=== PATIENT | male | born 1980 | race Caucasian/White ===

== ENCOUNTER 2016-05-04 19:14 | Emergency (ER) | payer OTHER ==
[~2016-05-04] VITALS: Ht 175.3 cm; Wt 69.0 kg
[~2016-05-04 19:14] MED LIST: NAPR550 PO; Z.0.NO CURRENT MEDS
[2016-05-04 19:27] VITALS: BP 116/80; PULSE 85; RESP 16; TEMP 98.8; O2SAT 98
[2016-05-04] MEDS ORDERED: AMLO5TAB2 PO (19:27)
[2016-05-04] MEDS ORDERED: BACT800T5 PO (19:27)
[2016-05-04] MEDS ORDERED: diphenhydrAMINE HCL 50 MG/ML VIAL IVP ONE (19:45)
[2016-05-04] MEDS ORDERED: methylPREDNISolone SOD SUCC 125 MG/2 ML VIAL IVP ONE (19:45)
[2016-05-04] MEDS ORDERED: FAMOTIDINE 20 MG/2 ML VIAL IV PUSH ONE (19:45)
[2016-05-04] MEDS ORDERED: SODIUM CHLORIDE 0.9% FLUSH 5 ML FLUSH IVF PRN (19:45)
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
[2016-05-04 20:15] VITALS: BP 115/73; PULSE 79; RESP 20; O2SAT 99
[2016-05-04 20:30] VITALS: BP 110/76; PULSE 72; RESP 20; O2SAT 98
[2016-05-04 21:38] LABS: BLOOD, URINE NEG (NEG); GLUCOSE,URINE NEG (NEG); KETONE, URINE NEG (NEG); NITRITE,URINE NEG (NEG)
[2016-05-04 21:39] LABS: AUTOMATED NEUTROPHIL # 2.7 TH/MM3 (1.8-7.7); BASOPHIL % 0.4 % (0.0-2.0); EOSINOPHIL # 0.1 TH/MM3 (0-0.4); EOSINOPHIL % 2.9 % (0.0-4.0); HEMATOCRIT 40.9 % (39.0-51.0); HEMO FLAGS DIFF FINAL; LYMPH % 15.5 % (9.0-44.0); LYMPHOCYTE # 0.6 TH/MM3 (1.0-4.8); MEAN CORPUSCULAR HEMOGLOBIN 30.2 PG (27.0-34.0); MEAN CORPUSCULAR HGB CONC 34.3 % (32.0-36.0); MONO % 9.6 % (0.0-8.0); NEUT % 71.6 % (16.0-70.0); PLATELET COUNT 156 TH/MM3 (150-450); RED BLOOD COUNT 4.65 MIL/MM3 (4.50-5.90); RED CELL DISTRIBUTION WIDTH 11.7 % (11.6-17.2); WHITE BLOOD COUNT 3.8 TH/MM3 (4.0-11.0)
[2016-05-04 21:47] LABS: POTASSIUM 3.7 MEQ/L (3.5-5.1)
[2016-05-04 21:48] LABS: COMMENT (UR) CULT NOT INDICATED; CULTURE IF INDICATED CULT NOT INDICATED
[2016-05-04 21:50] LABS: BICARBONATE 24.1 MEQ/L (21.0-32.0)
[2016-05-04 22:00] VITALS: BP 120/76; PULSE 72; RESP 20; O2SAT 98
[2016-05-04] MEDS ORDERED: SODIUM CHLOR 0.9% 1000 ML INJ 1,000 ML IV ONE (22:30)
[2016-05-04] MEDS ORDERED: MEDR4PAK PO (22:34)
[2016-05-04 23:15] VITALS: BP 115/76; PULSE 72; RESP 20; O2SAT 98
[2016-05-04 23:31] VITALS: BP 115/76
== END 2016-05-04 23:15 | disposition home or self-care (01) ==
LOC: PHED 19:14
DX: T88.7XXA Unspecified adverse effect of drug or medicament, initial encounter (principal); D72.819 Decreased white blood cell count, unspecified; I10 Essential (primary) hypertension; F10.20 Alcohol dependence, uncomplicated
CPT/HCPCS: 80048; 81001; 85025; 87040; 96374; 96375; 99283; J1200; J2930; J7030

== ENCOUNTER 2016-10-31 07:39 | Emergency (ER) | payer OTHER ==
[~2016-10-31] VITALS: Ht 177.8 cm; Wt 71.5 kg
[~2016-10-31 07:39] MED LIST changes: +AMLO5TAB2 PO; +BACT800T5 PO; +MEDR4PAK PO; -NAPR550 PO; -Z.0.NO CURRENT MEDS
[2016-10-31 07:54] VITALS: BP 142/102; PULSE 72; RESP 16; TEMP 97.9; O2SAT 100
[2016-10-31] MEDS ORDERED: SODIUM CHLOR 0.9% 1000 ML INJ 1,000 ML IV ONE (08:00)
[2016-10-31] MEDS ORDERED: THIAMINE INJ 100 MG in SODIUM CHLORIDE 0.9% INJ 100 ML IV ONE (08:00)
--- NOTE | 2016-10-31 08:02 | PD ---
HPI Chief Complaint: General Weakness Time Seen by Provider: 07:54 Travel History International Travel<30 days: No Contact w/Intl Traveler<30days: No Traveled to known affect area: No History of Present Illness HPI 36yo M presents to the ED with c/o generalized fatigue today with some lightheadedness and nausea. States he usually wakes up with energy but today feels tired and has not been eating well for the last few days. Pt drinks 6 beers a day, last time was yesterday. Denies any fever, cough, chest pain, sob , n/v, abdominal pain, focal weakness or numbness or trauma. Pt denies any thoughts of hurting himself or others. PFSH Past Medical History Asthma: Yes (IN CHILDHOOD) Diminished Hearing: No Hypertension: Yes Tetanus Vaccination: Unknown Influenza Vaccination: No Social History Alcohol Use: Yes (daily 6 beers daily) Tobacco Use: No (STS HE QUIT 06/01; USED TO SMOKE 1 PPD) Substance Use: No (DENIES ) Allergies-Medications (Allergen,Severity, Reaction): Coded Allergies: Cat Dander (Verified Allergy, Severe, ITCHY, WATERY EYES, 10/31/16) Codeine (Verified Allergy, Severe, 10/31/16) Sulfa (Verified Allergy, Intermediate, Rash, 10/31/16) Reported Meds & Prescriptions Reported Meds & Active Scripts Active Reported Amlodipine (Amlodipine Besylate) 5 Mg Tab 5 Mg PO DAILY Review of Systems Except as stated in HPI: all other systems reviewed are Neg Physical Exam Narrative GENERAL: 36yo M not in distress. SKIN: Focused skin assessment warm/dry. HEAD: Atraumatic. Normocephalic. EYES: Pupils equal and round at 3mm bilaterally. EOMI. No scleral icterus. No injection or drainage. ENT: No nasal bleeding or discharge. Mucous membranes pink and moist. NECK: Trachea midline. No JVD. CARDIOVASCULAR: Regular rate and rhythm. No murmur appreciated. RESPIRATORY: No accessory muscle use. Clear to auscultation. Breath sounds equal bilaterally. GASTROINTESTINAL: Abdomen soft, non-tender, nondistended. MUSCULOSKELETAL: No obvious deformities. No clubbing. No cyanosis. No edema. NEUROLOGICAL: Awake and alert. No obvious cranial nerve deficits. Motor grossly within normal limits. Normal speech. PSYCHIATRIC: Appropriate mood and affect; insight and judgment normal. Data Data Last Documented VS Vital Signs Date Time Temp Pulse Resp B/P Pulse Ox O2 Delivery O2 Flow Rate FiO2 10/31/16 08:53 82 16 146/95 98 Room Air 10/31/16 07:54 97.9 Orders Thiamine Inj (Thiamine Inj) (10/31/16 08:00) Sodium Chlor 0.9% 1000 Ml Inj (Ns 1000 M (10/31/16 08:00) Complete Blood Count With Diff (10/31/16 07:59) Basic Metabolic Panel (Bmp) (10/31/16 07:59) Magnesium (Mg) (10/31/16 07:59) Electrocardiogram (10/31/16 ) Thyroid Stimulating Hormone (10/31/16 08:02) Thyroxine (T4) (10/31/16 08:02) Ondansetron Inj (Zofran Inj) (10/31/16 08:45) Labs Laboratory Tests Test 10/31/16 08:14 White Blood Count 3.7 TH/MM3 Red Blood Count 4.89 MIL/MM3 Hemoglobin 14.4 GM/DL Hematocrit 42.5 % Mean Corpuscular Volume 86.9 FL Mean Corpuscular Hemoglobin 29.6 PG Mean Corpuscular Hemoglobin 34.0 % Concent Red Cell Distribution Width 11.6 % Platelet Count 194 TH/MM3 Mean Platelet Volume 8.0 FL Neutrophils (%) (Auto) 47.2 % Lymphocytes (%) (Auto) 37.8 % Monocytes (%) (Auto) 10.3 % Eosinophils (%) (Auto) 4.1 % Basophils (%) (Auto) 0.6 % Neutrophils # (Auto) 1.7 TH/MM3 Lymphocytes # (Auto) 1.4 TH/MM3 Monocytes # (Auto) 0.4 TH/MM3 Eosinophils # (Auto) 0.2 TH/MM3 Basophils # (Auto) 0.0 TH/MM3 CBC Comment DIFF FINAL Differential Comment Sodium Level 139 MEQ/L Potassium Level 4.1 MEQ/L Chloride Level 103 MEQ/L Carbon Dioxide Level 24.2 MEQ/L Anion Gap 12 MEQ/L Blood Urea Nitrogen 11 MG/DL Creatinine 0.89 MG/DL Estimat Glomerular Filtration 97 ML/MIN Rate Random Glucose 126 MG/DL Calcium Level 9.1 MG/DL Magnesium Level 2.0 MG/DL Thyroid Stimulating Hormone 1.260 uIU/ML 3rd Gen [facility] Medical Decision Making Medical Screen Exam Complete: Yes Emergency Medical Condition: Yes Interpretation(s) EKG: NSR 81bpm. Normal axis. 1mm ST elevation V2, V3. No reciprocal changes. Early repolarization. Differential Diagnosis Electrolyte abnormality vs. malnutrition vs. dehydration vs. depression Narrative Course 36yo M well appearing male here with c/o generalized fatigue today. Pt states he has been under a lot of stress. Also feels a little nauseous. Pt drinks daily around 6-8 beers a day. Labs reviewed, WBC mildly decreased at 3.7. K normal at 4.1. Magnesium normal at 2.0. TSH normal. Pt given thiamine and zofran. Pt reevaluated at bedside and feels better. No longer nauseous. Return precautions given. Diagnosis Primary Impression: Fatigue Qualified Code: R53.83 - Fatigue, unspecified type Patient Instructions: General Instructions Departure Forms: Tests/Procedures Additional Instructions: Please follow up with your PMD in 3-7 days. Return to the ED if symptoms worsen. Med/Other Pt SpecificInfo: No Change to Meds Disposition: 01 DISCHARGE HOME Condition: Stable Jodi Dave DO Oct 31, 2016 08:02
[2016-10-31 08:29] LABS: AUTOMATED NEUTROPHIL # 1.7 TH/MM3 (1.8-7.7); BASOPHIL % 0.6 % (0.0-2.0); EOSINOPHIL # 0.2 TH/MM3 (0-0.4); EOSINOPHIL % 4.1 % (0.0-4.0); HEMATOCRIT 42.5 % (39.0-51.0); HEMO FLAGS DIFF FINAL; LYMPH % 37.8 % (9.0-44.0); LYMPHOCYTE # 1.4 TH/MM3 (1.0-4.8); MEAN CELL VOLUME 86.9 FL (80.0-100.0); MEAN CORPUSCULAR HEMOGLOBIN 29.6 PG (27.0-34.0); MONO % 10.3 % (0.0-8.0); NEUT % 47.2 % (16.0-70.0); PLATELET COUNT 194 TH/MM3 (150-450); POTASSIUM 4.1 MEQ/L (3.5-5.1); RED BLOOD COUNT 4.89 MIL/MM3 (4.50-5.90); RED CELL DISTRIBUTION WIDTH 11.6 % (11.6-17.2); WHITE BLOOD COUNT 3.7 TH/MM3 (4.0-11.0)
[2016-10-31 08:32] LABS: BICARBONATE 24.2 MEQ/L (21.0-32.0)
[2016-10-31] MEDS ORDERED: ONDANSETRON HCL 4 MG/2 ML VIAL IV PUSH ONE (08:45)
[2016-10-31 08:53] VITALS: BP 146/95; PULSE 82; RESP 16; O2SAT 98
[2016-10-31 09:18] LABS: THYROXINE (T4) 7.9 MCG/DL (4.5-12.1)
[2016-10-31 09:51] VITALS: BP 157/91; PULSE 71; RESP 16; O2SAT 99
--- NOTE | 2016-10-31 11:41 | EKG ---
Date Performed: 10/31/2016 Time Performed: 08:26:43 PTAGE: 36 years EKG: Sinus rhythm NONSPECIFIC INTRAVENTRICULAR CONDUCTION DELAY BORDERLINE ECG NO PREVIOUS TRACING DOCTOR: Howard Benito Interpretating Date/Time 10/31/2016 11:39:41
== END 2016-10-31 10:05 | disposition home or self-care (01) ==
LOC: PHED 07:39
DX: R53.83 Other fatigue (principal); R11.0 Nausea
CPT/HCPCS: 80048; 83735; 84436; 84443; 85025; 93005; 96365; 96375; 99284; J2405; J3411; J7030